=== PATIENT | male | born 1960 | race American Indian/Alaskan Native ===

== ENCOUNTER 2017-01-04 23:07 | Emergency (ER) | payer MEDICAID ==
--- NOTE | 2017-01-05 08:09 | Emergency Department Report ---
HPI - General Chief Complaint: Back Pain/Injury Time Seen by Provider: 01/05/17 07:54 - HPI HPI: he is a 56-year-old male presents to ED complaining of right hip pain because he was slumped onto the ground last night. Patient states history of total hip replacement years ago. Patient states pain is throbbing in nature and localized to his right knee And worsened with weightbearing. He denies fevers/chills/nausea/vomiting/loss of sensation. ED Past Medical Hx - Past Medical History Previous Medical History?: Yes Hx Diabetes: Yes - Surgical History Past Surgical History?: Yes Additional Surgical History: reconstructive back sx 1995 - Social History Smoking Status: Never Smoker Substance Use Type: None - Medications Home Medications: Home Medications Medication Instructions Recorded Confirmed Last Taken Type Diclofenac Dr [Voltaren Dr] 75 mg PO DAILY #30 tablet 01/05/17 Unknown Rx methOCARBAMOL [Robaxin TAB] 500 mg PO BID #30 tab 01/05/17 Unknown Rx ED Review of Systems ROS: Stated complaint: BACK PAIN/CHEST PAIN Other details as noted in HPI Constitutional: denies: chills, fever Eyes: denies: eye pain, eye discharge, vision change ENT: denies: ear pain, throat pain Respiratory: denies: cough, shortness of breath, wheezing Cardiovascular: denies: chest pain, palpitations Endocrine: no symptoms reported Gastrointestinal: denies: abdominal pain, nausea, diarrhea Genitourinary: denies: urgency, dysuria Musculoskeletal: denies: back pain, joint swelling, arthralgia Skin: denies: rash, lesions Neurological: denies: headache, weakness, paresthesias Psychiatric: denies: anxiety, depression Hematological/Lymphatic: denies: easy bleeding, easy bruising Physical Exam - Physical Exam Vital Signs: Vital Signs 01/04/17 23:37 Temperature 98.3 F Pulse Rate 80 Respiratory 18 Rate Blood Pressure 156/96 O2 Sat by Pulse 96 Oximetry Physical Exam: GENERAL: Alert and oriented x3, no apparent distress, Normal Gait, atraumatic. HEAD: Head is normocephalic and a-traumatic. LUNGS: Symetrical with respiration, No wheezing, no rales or crackles, CTAB. HEART: S1, S2 present, regular rate and rhythm without murmur, no rubs, no gallops. Non tender to palpation ABDOMEN: No organomegaly was noted,Positive bowel sounds, soft, and non- distended. . Nontender to palpation on all Quadrants, NO CVA tenderness. EXTREMITIES/MUSCULOSKELETAL: No cyanosis, clubbing, rash, lesions or edema. Full ROM bilaterally all joints. UE Pulses 2+ bilaterally. LE 5+ strength bilaterally, straight leg raise negative bilaterally. Right hip tenderness to palpation, no edema, no bruising, no ecchymosis no active bleeding NEUROLOGIC: The patient is cooperative with no focal neurologic deficits. Cranial nerves II through XII are grossly intact. Normal speech. Normal sensation in bilateral lower extremities, No loss of sensation, No facial droop, SKIN: Warm and dry, No lesions, No ulceration or induration present. ED Course Vital Signs 01/04/17 23:37 Temperature 98.3 F Pulse Rate 80 Respiratory 18 Rate Blood Pressure 156/96 O2 Sat by Pulse 96 Oximetry ED Medical Decision Making - Radiology Data Radiology results: report reviewed, image reviewed RIGHT HIP, 2 views: History: Pain after fall. No comparison. There is been previous right hip replacement which is in normal alignment. Extensive internal fixation changes are noted throughout the right hemipelvis and pubic symphysis consistent with previous significant trauma. No acute abnormality is detected. IMPRESSION: Extensive surgical changes in the right hemipelvis and right hip but no obvious acute injury. Transcribed By: TTR Dictated By: KACY JORDAN JR, MD Electronically Authenticated By: KACY JORDAN JR, MD Signed Date/Time: 01/05/17 0858 - Medical Decision Making 56-year-old male presents with right hip arthralgia ED course: X-rays of the hip obtained X-rays of the shows no acute fracture noted dislocation. Discussed findings with patient. Discussed the patient to follow-up with primary care physician as referred. Discussed his symptoms worsen he can return to the ED Vital signs are normal patient is in no acute distress Critical care attestation.: If time is entered above; I have spent that time in minutes in the direct care of this critically ill patient, excluding procedure time. ED Disposition Clinical Impression: Arthralgia of right hip Disposition: DC-01 TO HOME OR SELFCARE Is pt being admited?: No Does the pt Need Aspirin: No Condition: Stable Instructions: Arthralgia (ED) Prescriptions: Diclofenac [Voltaresamuel Dr] 75 mg PO DAILY #30 tablet methOCARBAMOL [Robaxin TAB] 500 mg PO BID #30 tab Referrals: PRIMARY CARE, [Primary Care Provider] - 3-5 Days [facility] [place] [facility] [place]Outside] - 3-5 Days [facility] [Outside] - 3-5 Days [facility] [Outside] - 3-5 Days Forms: Work/School Release Form(ED) Time of Disposition: 09:13
--- NOTE | 2017-01-05 09:04 | XRay Report ---
RIGHT HIP, 2 views: History: Pain after fall. No comparison. There is been previous right hip replacement which is in normal alignment. Extensive internal fixation changes are noted throughout the right hemipelvis and pubic symphysis consistent with previous significant trauma. No acute abnormality is detected. IMPRESSION: Extensive surgical changes in the right hemipelvis and right hip but no obvious acute injury.
[2017-01-05 09:24] VITALS: BP 151/90
== END 2017-01-05 09:22 | disposition home or self-care (01) ==
LOC: ED 23:07
DX: M25.551 Pain in right hip (principal); E11.9 Type 2 diabetes mellitus without complications; Z96.651 Presence of right artificial knee joint
CPT/HCPCS: 93005; 93010